=== PATIENT | male | born 1940 | race Native Hawaiian/Other Pacific Islander ===

== ENCOUNTER 2020-07-17 11:17 | Outpatient (CLI) | payer OTHER | END 2020-07-17 21:10 | disposition home or self-care (01) | LOC: INF 11:17 | PROVIDERS: ATTEND Internal Medicine | DX: Z23 Encounter for immunization (principal) | CPT/HCPCS: 96372 ==

== ENCOUNTER 2020-08-13 13:06 | Outpatient (CLI) | payer OTHER | END 2020-08-13 21:19 | disposition home or self-care (01) | LOC: INF 13:06 | PROVIDERS: ATTEND Internal Medicine | DX: Z23 Encounter for immunization (principal) | CPT/HCPCS: 96372 ==